=== PATIENT | male | born 1990 ===

== ENCOUNTER 2021-07-11 23:46 | Emergency (ER) | payer SELFPAY ==
--- NOTE | 2021-07-12 03:01 | XRay Report ---
CHEST PA AND LATERAL VIEWS INDICATION: Fever. COMPARISON: None. FINDINGS: Support devices: None. Heart: Within normal limits. Lungs/Pleura: No acute pulmonary or pleural findings. IMPRESSION: 1. No acute findings. Signer Name: George Buckley MD Signed: 07/12/2021 2:56 AM Workstation Name: [id number]
--- NOTE | 2021-07-12 03:33 | Emergency Department Report ---
ED General Adult HPI - General Chief complaint: Fever Stated complaint: HIGH FEVER/BODY PAIN Source: patient Mode of arrival: Ambulatory Limitations: No Limitations - History of Present Illness Initial comments: Patient is a 30-year-old male with no past medical history presents to the ED with complaint of acute onset persistent diffuse body aches and pains, persistent nausea and diarrhea with intermittent fever of up to 102 F for the last 3 days, worse in the last 12 hours. Patient states that about 8 hours ago he had a fever 103 F and has been taking acetaminophen and aspirin at home. Patient states that he is fully vaccinated against COVID-19 virus, and that no one else at home is at similar symptoms. Patient denies dizziness, syncope, chest pain, shortness of breath, vomiting, abdominal pain, dysuria, urinary frequency and urgency, cough, change in vision, sore throat, nasal and sinus congestion. MD Complaint: Fever, chills, nausea, diarrhea, diffuse body aches and pains -: Sudden, days(s) (3) Location: head, abdomen Radiation: non-radiation Severity scale (0 -10): 6 Quality: aching, sharp Consistency: constant Improves with: none Worsens with: none Associated Symptoms: denies other symptoms, cough, fever/chills, headaches, loss of appetite, malaise, nausea/vomiting, other (Diarrhea). denies: confusion, chest pain, diaphoresis, rash, seizure, shortness of breath, syncope, weakness Treatments Prior to Arrival: NSAID - Related Data Previous Rx's Medication Instructions Recorded Last Taken Type Ascorbic Acid [Vitamin C] 1,000 mg PO Q12H #30 tablet 07/12/21 Unknown Rx Famotidine [Pepcid] 20 mg PO BID #60 tablet 07/12/21 Unknown Rx Ibuprofen [Motrin] 800 mg PO Q8HR PRN #30 tablet 07/12/21 Unknown Rx Ondansetron [Zofran Odt] 4 mg PO Q8HR PRN #15 tab.rapdis 07/12/21 Unknown Rx Allergies Allergy/AdvReac Type Severity Reaction Status Date / Time No Known Allergies Allergy Verified 07/12/21 02:04 ED Review of Systems ROS: Stated complaint: HIGH FEVER/BODY PAIN Other details as noted in HPI Constitutional: chills, fever, malaise Eyes: denies: eye pain, eye discharge, vision change ENT: congestion. denies: ear pain, throat pain Respiratory: cough. denies: shortness of breath, wheezing Cardiovascular: denies: chest pain, palpitations Endocrine: no symptoms reported Gastrointestinal: nausea, diarrhea. denies: abdominal pain Genitourinary: denies: urgency, dysuria, frequency, hematuria, testicular pain, testicular mass Musculoskeletal: back pain, arthralgia, myalgia. denies: joint swelling Skin: denies: rash, lesions Neurological: headache. denies: weakness, paresthesias Psychiatric: denies: anxiety, depression Hematological/Lymphatic: denies: easy bleeding, easy bruising ED Past Medical Hx - Past Medical History Previous Medical History?: No - Medications Home Medications: Home Medications Medication Instructions Recorded Confirmed Last Taken Type Ascorbic Acid [Vitamin C] 1,000 mg PO Q12H #30 tablet 07/12/21 Unknown Rx Famotidine [Pepcid] 20 mg PO BID #60 tablet 07/12/21 Unknown Rx Ibuprofen [Motrin] 800 mg PO Q8HR PRN #30 tablet 07/12/21 Unknown Rx Ondansetron [Zofran Odt] 4 mg PO Q8HR PRN #15 tab.rapdis 07/12/21 Unknown Rx ED Physical Exam - General Limitations: No Limitations General appearance: alert, in no apparent distress - Head Head exam: Present: atraumatic, normocephalic, normal inspection - Eye Eye exam: Present: normal appearance, PERRL, EOMI Pupils: Present: normal accommodation - ENT ENT exam: Present: normal exam, mucous membranes moist, TM's normal bilaterally, normal external ear exam, other (Grossly congested nasal passages; erythematous oropharynx and tonsils) - Neck Neck exam: Present: normal inspection, full ROM - Respiratory Respiratory exam: Present: normal lung sounds bilaterally. Absent: respiratory distress, wheezes, rales, rhonchi, chest wall tenderness, accessory muscle use, decreased breath sounds, prolonged expiratory - Cardiovascular Cardiovascular Exam: Present: normal rhythm, tachycardia, normal heart sounds. Absent: systolic murmur, diastolic murmur, rubs, gallop - GI/Abdominal GI/Abdominal exam: Present: soft, normal bowel sounds. Absent: tenderness, guarding, rebound, hyperactive bowel sounds, hypoactive bowel sounds, organomegaly - Extremities Exam Extremities exam: Present: normal inspection, full ROM, normal capillary refill - Back Exam Back exam: Present: normal inspection, full ROM. Absent: tenderness, CVA ten derness (R), CVA tenderness (L), muscle spasm, paraspinal tenderness, vertebral tenderness - Neurological Exam Neurological exam: Present: alert, oriented X3, CN II-XII intact, normal gait, reflexes normal - Psychiatric Psychiatric exam: Present: normal affect, normal mood - Skin Skin exam: Present: warm, dry, intact, normal color. Absent: rash ED Course Vital Signs 07/12/21 07/12/21 02:05 03:59 Temperature 99.0 F Pulse Rate 115 H 99 H Respiratory 19 16 Rate Blood Pressure 137/100 136/88 [Right] O2 Sat by Pulse 99 Oximetry ED Medical Decision Making - Radiology Data Radiology results: report reviewed, image reviewed [facility] [address] [place] [address] XRay Report Signed Patient: ANNA MCKEON MR#: [id number] : 1990 Acct:[id number] Age/Sex: 30 / M ADM Date: 07/11/21 Loc: ED Attending Dr: Ordering Physician: ANDREZ DESIR Date of Service: 07/12/21 Procedure(s): XR chest routine 2V Accession Number(s): [id number] cc: ANDREZ DESIR Fluoro Time In Minutes: CHEST PA AND LATERAL VIEWS INDICATION: Fever. COMPARISON: None. FINDINGS: Support devices: None. Heart: Within normal limits. Lungs/Pleura: No acute pulmonary or pleural findings. IMPRESSION: 1. No acute findings. Signer Name: George Buckley MD Signed: 07/12/2021 2:56 AM Workstation Name: [id number] Transcribed By: ALEXIS Dictated By: George Buckley MD Electronically Authenticated By: George Buckley MD Signed Date/Time: 07/12/21255 DD/ 4 TD/TT: - Medical Decision Making This is a 30-year-old male with no past medical history presents to the ED with complaint of acute onset persistent diffuse body aches and pains, persistent nausea and diarrhea with intermittent fever of up to 102 F for the last 3 days, worse in the last 12 hours. Patient states that about 8 hours ago he had a fever 103 F and has been taking acetaminophen and aspirin at home. Patient states that he is fully vaccinated against COVID-19 virus, and that no one else at home is at similar symptoms. In the ED, patient is alert and oriented x3 and is not in any distress. Patient is however tachycardic and afebrile. Chest x-ray showed no acute cardiopulmonary abnormalities or pneumonitis. Patient symptoms are likely due to a viral syndrome. Patient was discharged home on medications and advised to get tested in one of the outpatient facilities for COVID-19 infection and if positive to self quarantine for 10 days at home. Patient was otherwise advised to return to the ED im mediately if symptoms get worse. - Differential Diagnosis Pneumonia; bronchitis; gastroenteritis; COVID-19; strep throat Critical care attestation.: If time is entered above; I have spent that time in minutes in the direct care of this critically ill patient, excluding procedure time. ED Disposition Clinical Impression: Fever and chills, Nonspecific syndrome suggestive of viral illness Acute pharyngitis Qualifiers: Pharyngitis/tonsillitis etiology: other specified organisms Qualified Code(s): J02.8 - Acute pharyngitis due to other specified organisms Disposition: 01 HOME / SELF CARE / HOMELESS Is pt being admited?: No Does the pt Need Aspirin: No Condition: Stable Instructions: Upper Respiratory Infection, Adult, [id number], Pharyngitis, [id number], Fever, Adult, [id number] Additional Instructions: La radiografa de trax no muestra anomalas cardiopulmonares agudas ni neumonitis. Es probable que bonny sntomas audi virales y, por lo tanto, se recomienda timur los medicamentos necesarios para las nuseas y los vmitos, los emma corporales y el dolor, as rafael la fiebre, y beber muchos lquidos. Nickolas un seguimiento con reyes mdico de atencin primaria en 7 a 10 mao para shayna reevaluacin. Considere acudir a las pruebas de diagnstico de COVID-19 en cu alquiera de las instalaciones para pacientes ambulatorios para determinar reyes estado. Si es positivo, pngase en cuarentena en casa ashlee 10 mao de acuerdo con las recomendaciones de los CDC. De lo contrario, regrese al servicio de urgencias de inmediato si bonny sntomas empeoran. Prescriptions: Ibuprofen [Motrin] 800 mg PO Q8HR PRN #30 tablet PRN Reason: Fever >101 Famotidine [Pepcid] 20 mg PO BID #60 tablet Ascorbic Acid [Vitamin C] 1,000 mg PO Q12H #30 tablet Ondansetron [Zofran Odt] 4 mg PO Q8HR PRN #15 tab.rapdis PRN Reason: Nausea Referrals: [facility] [Provider Group] - 7-10 days Time of Disposition: 03:33 Print Language: CYMRAES
[2021-07-12 04:06] VITALS: BP 136/88
== END 2021-07-12 04:14 | disposition home or self-care (01) ==
LOC: ED 23:46
DX: J02.8 Acute pharyngitis due to other specified organisms (principal); R50.9 Fever, unspecified; B34.9 Viral infection, unspecified; Z79.899 Other long term (current) drug therapy
CPT/HCPCS: 71046